=== PATIENT | female | born 1980 | race Caucasian/White ===

== ENCOUNTER → 2017-04-23 | Outpatient (REF) | payer OTHER | LOC: M SFHCLERA 09:47 | PROVIDERS: ATTEND Nurse Practitioner Family | DX: R10.30 Lower abdominal pain, unspecified (principal); N89.8 Other specified noninflammatory disorders of vagina ==

== ENCOUNTER → 2018-08-22 | Outpatient (REF) | payer OTHER | LOC: M SFHCLERA 09:44 | DX: J02.9 Acute pharyngitis, unspecified (principal) ==

== ENCOUNTER → 2021-02-24 | Outpatient (CLI) | payer OTHER ==
[~2021-02-24] MED LIST: E-Z-GAS II EFFERVESCENT PACKET (SODIUM BICARB./CITRIC ACID/SIMETHICONE) As Ordered ONE; E-Z-HD 98% w/w 340GM SUSP BTL As Ordered ONE; E-Z-PAQUE 96% w/w SUSP 176GM BTL As Ordered ONE
--- NOTE | 2021-02-24 16:52 | REP ---
INDICATION: GASTRITIS, EPIGASTRIC PAIN, REFLUX. COMPARISON: None. TECHNIQUE: The procedure was performed under the direct supervision of Dr. Ferreira. The images were reviewed with Dr. Ferreira. Liquid barium and gas producing crystals were given in the erect position as well as liquid barium in the prone oblique position in order to perform a double contrast upper GI examination. 1.3 of fluoro time was utilized for this procedure. FINDINGS: The instrument man film shows no organomegaly or pathological masses. The intestinal gas pattern is non-specific. The oral and pharyngeal stages of deglutition are unremarkable. Esophageal transport is prompt and efficient and there is no esophagitis, stricture, mucosal ring or hiatal hernia. The stomach reveles are normally outlined. The rugal folds are smooth and regular. There is no gastritis neoplasm or ulcer disease. Within the duodenal bulb there are prominent folds which may represent duodenitis. There is no brian ulcer identified. The visualized portion of the proximal small bowel appears normal in course and caliber. IMPRESSION: Within the duodenal bulb there are prominent folds which may represent duodenitis. There is no brian ulcer identified. <Electronically signed by Charanjit Ortega > 02/24/21 [id number] <Electronically signed by Rei Ferreira > 02/24/21 [id number]
== END ==
LOC: M RAD 10:35
PROVIDERS: ATTEND Physician Assistant Medical
DX: R10.13 Epigastric pain (principal); K21.9 Gastro-esophageal reflux disease without esophagitis; K29.70 Gastritis, unspecified, without bleeding

== ENCOUNTER → 2021-08-28 | Outpatient (CLI) | payer OTHER ==
[~2021-08-28] MED LIST changes: -E-Z-GAS II EFFERVESCENT PACKET (SODIUM BICARB./CITRIC ACID/SIMETHICONE) As Ordered ONE; -E-Z-HD 98% w/w 340GM SUSP BTL As Ordered ONE; -E-Z-PAQUE 96% w/w SUSP 176GM BTL As Ordered ONE; +ESOM20CA25 PO
== END ==
LOC: M LABSMTC 11:04
PROVIDERS: ATTEND Anesthesiology
DX: Z01.812 Encounter for preprocedural laboratory examination (principal); Z20.822 Contact with and (suspected) exposure to COVID-19

== ENCOUNTER 2021-09-01 07:00 | Day surgery (SDC) | payer OTHER ==
[~2021-09-01] VITALS: Ht 175.3 cm; Wt 83.9 kg
[~2021-09-01 07:00] MED LIST changes: +LIDOCAINE 2% 100MG/5ML SDV (FOR ANES.) As Ordered ONE; +NS 1,000 ML IV ONE; +propofoL 200 MG/20 ML VIAL As Ordered ONE
--- OUTSIDE RECORDS SUMMARY | 2021-09-01 07:04 | CCD ---
Author Author [facility] Organization [facility] Address Unknown Phone Unavailable Care Team Providers Care Overhead Garage Door Hanger Name Role Phone LePine, M Yuli FUNERAL SALES MANAGER Unavailable Unavailable LePine, M Yuli FUNERAL SALES MANAGER Unavailable Unavailable LePine, M Yuli FUNERAL SALES MANAGER Unavailable Unavailable LePine, M Yuli FUNERAL SALES MANAGER Unavailable Unavailable LePine, M Yuli FUNERAL SALES MANAGER Unavailable Unavailable LePine, M Yuli FUNERAL SALES MANAGER Unavailable Unavailable LePine, M Yuli FUNERAL SALES MANAGER Unavailable Unavailable LePine, M Yuli FUNERAL SALES MANAGER Unavailable Unavailable LePine, M Yuli FUNERAL SALES MANAGER Unavailable Unavailable LePine, M Yuli FUNERAL SALES MANAGER Unavailable Unavailable LePine, M Yuli FUNERAL SALES MANAGER Unavailable Unavailable LePine, M Yuli FUNERAL SALES MANAGER Unavailable Unavailable LePine, M Yuli FUNERAL SALES MANAGER Unavailable Unavailable LePine, M Yuli FUNERAL SALES MANAGER Unavailable Unavailable LePine, M Yuli FUNERAL SALES MANAGER Unavailable Unavailable LePine, M Yuli FUNERAL SALES MANAGER Unavailable Unavailable LePine, M Yuli FUNERAL SALES MANAGER Unavailable Unavailable LePine, M Yuli FUNERAL SALES MANAGER Unavailable Unavailable LePine, M Yuli FUNERAL SALES MANAGER Unavailable Unavailable LePine, M Yuli FUNERAL SALES MANAGER Unavailable Unavailable LePine, M Yuli FUNERAL SALES MANAGER Unavailable Unavailable LePine, M Yuli FUNERAL SALES MANAGER Unavailable Unavailable LePine, M Yuli FUNERAL SALES MANAGER Unavailable Unavailable LePine, M Yuli FUNERAL SALES MANAGER Unavailable Unavailable LePine, M Yuli FUNERAL SALES MANAGER Unavailable Unavailable LePine, M Yuli FUNERAL SALES MANAGER Unavailable Unavailable LePine, M Yuli FUNERAL SALES MANAGER Unavailable Unavailable LePine, M Yuli FUNERAL SALES MANAGER Unavailable Unavailable LePine, M Yuli FUNERAL SALES MANAGER Unavailable Unavailable LePine, M Yuli FUNERAL SALES MANAGER Unavailable Unavailable LePine, M Yuli FUNERAL SALES MANAGER Unavailable Unavailable LePine, M Yuli FUNERAL SALES MANAGER Unavailable Unavailable LePine, M Yuli FUNERAL SALES MANAGER Unavailable Unavailable LePine, M Yuli FUNERAL SALES MANAGER Unavailable Unavailable LePine, M Yuli FUNERAL SALES MANAGER Unavailable Unavailable LePine, M Yuli FUNERAL SALES MANAGER Unavailable Unavailable LePine, M Yuli FUNERAL SALES MANAGER Unavailable Unavailable LePine, M Yuli FUNERAL SALES MANAGER Unavailable Unavailable LePine, M Yuli FUNERAL SALES MANAGER Unavailable Unavailable LePine, M Yuli FUNERAL SALES MANAGER Unavailable Unavailable LePine, M Yuli FUNERAL SALES MANAGER Unavailable Unavailable LePine, M Yuli FUNERAL SALES MANAGER Unavailable Unavailable LePine, M Yuli FUNERAL SALES MANAGER Unavailable Unavailable LePine, M Yuil FUNERAL SALES MANAGER Unavailable Unavailable LePine, M Yuli FUNERAL SALES MANAGER Unavailable Unavailable LePine, M Yuli FUNERAL SALES MANAGER Unavailable Unavailable LePine, M Yuli FUNERAL SALES MANAGER Unavailable Unavailable LePine, M Yuli FUNERAL SALES MANAGER Unavailable Unavailable LePine, M Yuli FUNERAL SALES MANAGER Unavailable Unavailable LePine, M Yuli FUNERAL SALES MANAGER Unavailable Unavailable LePine, M Yuli FUNERAL SALES MANAGER Unavailable Unavailable LePine, M Yuli FUNERAL SALES MANAGER Unavailable Unavailable LePine, M Yuli FUNERAL SALES MANAGER Unavailable Unavailable LePine, M Yuli FUNERAL SALES MANAGER Unavailable Unavailable LePine, M Yuli FUNERAL SALES MANAGER Unavailable Unavailable LePine, M Yuli FUNERAL SALES MANAGER Unavailable Unavailable Eugenia Hutton MD Unavailable Unavailable Eugenia Hutton MD Unavailable Unavailable Eugenia Hutton MD Unavailable Unavailable Eugenia Hutton MD Unavailable Unavailable Eugenia Hutton MD Unavailable Unavailable Eugenia Hutton MD Unavailable Unavailable Eugenia Hutton MD Unavailable Unavailable Eugenia Hutton MD Unavailable Unavailable Eugenia Hutton MD Unavailable Unavailable Eugenia Hutton MD Unavailable Unavailable Eugenia Hutton MD Unavailable Unavailable Eugenia Hutton MD Unavailable Unavailable Eugenia Hutton MD Unavailable Unavailable Eugenia Hutton MD Unavailable Unavailable Eugenia Hutton MD Unavailable Unavailable Eugenia Hutton MD Unavailable Unavailable Eugenia Hutton MD Unavailable Unavailable Eugenia Hutton MD Unavailable Unavailable Eugenia Hutton MD Unavailable Unavailable Eugenia Hutton MD Unavailable Unavailable Eugenia Hutton MD Unavailable Unavailable Eugenia Hutton MD Unavailable Unavailable Eugenia Hutton MD Unavailable Unavailable Eugenia Hutton MD Unavailable Unavailable Eugenia Hutton MD Unavailable Unavailable Eugenia Hutton MD Unavailable Unavailable Eugenia Hutton MD Unavailable Unavailable Eugenia Hutton MD Unavailable Unavailable Eugenia Hutton MD Unavailable Unavailable Eugenia Hutton MD Unavailable Unavailable Brennen, Eugenia Bates MD Unavailable Unavailable Brennen, Eugenia Bates MD Unavailable Unavailable Brennen, Eugenia Bates MD Unavailable Unavailable Brennen, Eugenia Bates MD Unavailable Unavailable Brennen, Eugenia Bates MD Unavailable Unavailable Brennen, Eugenia Bates MD Unavailable Unavailable Brennen, Eugenia Bates MD Unavailable Unavailable Brennen, Eugenia Bates MD Unavailable Unavailable Brennen, Eugenia Bates MD Unavailable Unavailable Brennen, Eugenia Bates MD Unavailable Unavailable Brennen, Eugenia Bates MD Unavailable Unavailable Brennen, Eugenia Bates MD Unavailable Unavailable Brennen, Eugenia Bates MD Unavailable Unavailable Brennen, Eugenia Bates MD Unavailable Unavailable Brennen, Eugenia Bates MD Unavailable Unavailable Brennen, Eugenia Bates MD Unavailable Unavailable Brennen, Eugenia Bates MD Unavailable Unavailable Brennen, Eugenia Bates MD Unavailable Unavailable Brennen, A Jana FRY Unavailable Unavailable Brennen, Eugenia Bates MD Unavailable Unavailable Brennen, A Jana FRY Unavailable Unavailable Brennen, Eugenia Bates MD Unavailable Unavailable Brennen, Eugenia Bates MD Unavailable Unavailable Brennen, Eugenia Bates MD Unavailable Unavailable Brennen, Eugenia Bates MD Unavailable Unavailable Brennen, A Jana FRY Unavailable Unavailable Brennen, Eugenia Bates MD Unavailable Unavailable Brennen, A Jana FRY Unavailable Unavailable Brennen, A Jana FRY Unavailable Unavailable Brennen, Eugenia Bates MD Unavailable Unavailable Brennen, Eugenia Bates MD Unavailable Unavailable Brennen, Eugenia Bates MD Unavailable Unavailable Brennen, Eugenia Bates MD Unavailable Unavailable Brennen, Eugenia Bates MD Unavailable Unavailable Brennen, Eugenia Bates MD Unavailable Unavailable Brennen, Eugenia Bates MD Unavailable Unavailable Brennen, Eugenia Bates MD Unavailable Unavailable Brennen, Eugenia Bates MD Unavailable Unavailable Brennen, Eugenia Bates MD Unavailable Unavailable Brennen, Eugenia Bates MD Unavailable Unavailable Brennen, Eugenia Bates MD Unavailable Unavailable Brennen, Eugenia Bates MD Unavailable Unavailable Brennen, Eugenia Bates MD Unavailable Unavailable Brennen, Eugenia Bates MD Unavailable Unavailable Brennen, Eugenia Bates MD Unavailable Unavailable Brennen, Eugenia Bates MD Unavailable Unavailable Brennen, Eugenia Bates MD Unavailable Unavailable Brennen, Eugenia Bates MD Unavailable Unavailable Brennen, Eugenia Bates MD Unavailable Unavailable Brennen, Eugenia Bates MD Unavailable Unavailable Brennen, Eugenia Bates MD Unavailable Unavailable Brennen, Eugenia Bates MD Unavailable Unavailable Valentine RODNEY MD Unavailable Unavailable Valentine RODNEY MD Unavailable Unavailable Valentine RODNEY MD Unavailable Unavailable Valentine RODNEY MD Unavailable Unavailable Valentine RODNEY MD Unavailable Unavailable Valentine RODNEY MD Unavailable Unavailable Valentine RODNEY MD Unavailable Unavailable Valentine RODNEY MD Unavailable Unavailable TLRALValentine Bello MD Unavailable Unavailable CHANDRALAValentine MD Unavailable Unavailable CHANDRALAValentine MD Unavailable Unavailable CHANDRALAValentine MD Unavailable Unavailable CHANDRALValentine Bello MD Unavailable Unavailable CHANDRALA K MANUEL MD Unavailable Unavailable CHANDRALA K MANUEL MD Unavailable Unavailable CHANDRALA K MANUEL MD Unavailable Unavailable CHANDRALAValentine MD Unavailable Unavailable CHANDRALAValentine MD Unavailable Unavailable CHANDRALAValentine MD Unavailable Unavailable CHANDRALA K MANUEL MD Unavailable Unavailable CHANDRALAValentine MD Unavailable Unavailable CHANDRALA K MANUEL MD Unavailable Unavailable CHANDRALAValentine MD Unavailable Unavailable CHANDRALAValentineYA MD Unavailable Unavailable CHANDRALA K MANUEL MD Unavailable Unavailable CHANDRALA K MANUEL MD Unavailable Unavailable CHANDRALA K MANUEL MD Unavailable Unavailable CHANDRALAValentineYA MD Unavailable Unavailable TLRALValentine Bello MD Unavailable Unavailable CHANDRALAValentine MD Unavailable Unavailable CHANDRALA K MANUEL MD Unavailable Unavailable CHANDRALA K MANUEL MD Unavailable Unavailable CHANDRALA K MANUEL MD Unavailable Unavailable Re-disclosure Warning The records that you are about to access may contain information from federally-assisted alcohol or drug abuse programs. If such information is present, then the following federally mandated warning applies: This information has been disclosed to you from records protected by federal confidentiality rules (42 CFR part 2). The federal rules prohibit you from making any further disclosure of this information unless further disclosure is expressly permitted by the written consent of the person to whom it pertains or as otherwise permitted by 42 CFR part 2. A general authorization for the release of medical or other information is NOT sufficient for this purpose. The Federal rules restrict any use of the information to criminally investigate or prosecute any alcohol or drug abuse patient.The records that you are about to access may contain highly sensitive health information, the redisclosure of which is protected by Article 27-F of the [facility] Public Health law. If you continue you may have access to information: Regarding HIV / AIDS; Provided by facilities licensed or operated by the [facility] Office of Mental Health; or Provided by the [facility] Office for People With Developmental Disabilities. If such information is present, then the following [facility] mandated warning applies: This information has been disclosed to you from confidential records which are protected by state law. State law prohibits you from making any further disclosure of this information without the specific written consent of the person to whom it pertains, or as otherwise permitted by law. Any unauthorized further disclosure in violation of state law may result in a fine or alf sentence or both. A general authorization for the release of medical or other information is NOT sufficient authorization for further disc losure. Family History Family Member Name Family Member Gender Family Member Status Date o f Status Description Data Source(s) Unknown Female Diagnosis 12/04/2017 12:00:00 AM EST Next[facility] ([facility]) Encounters Encounter Providers Location Date Indications Data Source(s ) Outpatient Attender: MANUEL Rubin/Inga/Paddy lópez/Darwin 06/13/2021 10:00:00 AM EDT [facility] ([facility] Outpatient Attender: Yuli Ruby 03/29 08:00:00 AM EDT [facility] ([facility] ) Outpatient [address] [facility] [id number] 03/15/2021 12:00:00 AM EDT eCW1 ([facility]) Outpatient Attender: Yuli Ruby 02/22 08:00:00 AM EDT MEDENT ([facility] ) Attender: Jana Ornelas 1 02:51:00 PM EDT - 09/09/2020 02:51:00 PM EDT NextGen ([facility]) Immunizations Vaccine Date Status Description Data Source(s) COVID-19 VACCINE Pfizer 02/20/2021 12:00:00 AM EDT completed [facility] Vaccine Series Complete: YESThis Data wa s Submitted to [facility] Via [employer]. COVID-19 VACCINE Pfizer 01/30/2021 12:00:00 AM EDT completed [facility] Vaccine Series Complete: NOThis Data was Submitted to [facility] Via [employer]. Medications Medication Brand Name Start Date Product Form Dose Route Admi nistrative Instructions Pharmacy Instructions Status Indications Reaction Description Data Source(s) Clenpiq Clenpiq 06/13/2021 12:00:00 AM EDT active [facility] ([facility] ) Bisacodyl 5 MG Delayed Release Oral Tablet [Dulcolax] Dulcol ax 06/13/2021 12:00:00 AM EDT active M EDENT ([facility]) POLYETHYLENE GLYCOL 3350 105 MG/ML / Pot assium Chloride 0.63291 MEQ/ML / Sodium Bicarbonate 0.017 MEQ/ML / Sodium Chloride 0.0479 MEQ/ML Oral Solution [GaviLyte-N] Gavilyte-N With Flavor Pack 06/13/2021 12:00:00 AM EDT active MEDENT ([facility]) Esomeprazole 20 MG Delayed Release Oral Capsule Esomeprazole Magnesium 05/30/2021 12:00:00 AM EDT ORAL completed [facility] ([facility]) Esomeprazole 20 MG Delayed Release Oral Capsule Esomeprazole Magnesium 05/30/2021 12:00:00 AM EDT ORAL completed [facility] ([facility]) Esomeprazole 20 MG Delayed Release Oral Capsule Esomeprazole Magnesium 05/30/2021 12:00:00 AM EDT ORAL active [facility]) Esomeprazole 40 MG Delayed Release Oral Capsule Esomeprazole Magnesium 04/25/2021 12:00:00 AM EDT ORAL completed [facility] ([facility]) Esomeprazole 20 MG Delayed Release Oral Capsule Esomeprazole Magnesium 03/29/2021 12:00:00 AM EDT ORAL completed [facility] ([facility]) Cholecalciferol 1000 UNT Oral Capsule Vitamin D3 03/29/2021 12:00:00 AM EDT ORAL active [facility] ([facility]) Fluconazole 150 MG Oral Tablet Fluconazole 150 MG 03/15/2021 12:00: 00 AM EDT 1.0 {tablet} active Fluconazole 150 MG eCW1 ([facility]) Esomeprazole 40 MG Delayed Release Oral Capsule Esomeprazole Magnesium 02/22/2021 12:00:00 AM EDT ORAL completed MEDENT ([facility]) Bifidobacterium lactis [id number] UNT / Bifidobacterium longum [id number] UNT / Lactobacillus acidophilus [id number] UNT Oral Capsule [Florajen3] Florajen3 02/22/2021 12:00:00 AM EDT ORAL completed [facility] ([facility]) Esomeprazole 20 MG Delayed Release Oral Capsule Esomeprazole Magnesium 02/22/2021 12:00:00 AM EDT ORAL completed [facility] ([facility]) Ondansetron 4 MG Disintegrating Oral Tablet Ondansetron 02/22/2021 12:00:00 AM EDT active MED[facility] ([facility]) Covid-19 vaccine, Unspecified 02/20/2021 12:00:00 AM EDT completed [facility]) Medication administered onsite Covid-19 vaccine, Unspecified 01/23/2021 12:00:00 AM EDT completed [facility]) Medication administered onsite Insurance Providers Payer name Policy type / Coverage type Policy ID Covered libertarian ID Covered libertarian's relationship to morgan Policy Morgan Plan Information [facility] 1 [id number] 1 [id number] [facility] [id number] self [id number] ANSI-Commercial [id number] [place] [facility] 306/[id number] SP [id number] [facility] [id number] SP [id number] [facility]S [id number] 2 [id number] [facility] [id number] SP [id number] [employer] MEDICAL CLAIMS [id number] ANSI-Commercial [id number] Problems, Conditions, and Diagnoses No Information Surgeries/Procedures Procedure Description Date Indications Data Source(s) OFFICE OUTPATIENT NEW 45 MINUTES 06/13/2021 12:00:00 A M EDT [facility] ([facility], ) OFFICE OUTPATIENT VISIT 10 MINUTES 03/29/2021 12:00:00 AM EDT [facility] ([facility]) Results ID Date Data Source [id number] 08/28/2021 10:50:00 AM EDT [facility] ([facility]) Name Value Range Interpretation Code Description Data Katie rce(s) Supporting Document(s) Coronavirus 2019 Nasopharygeal Laboratory test result [facility] ASSAY INFORMATION: Real Time RT-PCR NOTE: The COVID-19 assay has been cleared by the U.S. Food and Drug Administration under the Emergency Use Authorization (EUA). [employer] and [employer] are designated as high complexity laboratories by the Clinical Laboratory Improvement Amendments of 1988(CLIA) and are qualified to perform this test. Not Detected ID Date Data Source [id number] 02/22/2021 09:08:00 AM EDT [facility] ([facility]) Name Value Range Interpretation Code Description Data Katie rce(s) Supporting Document(s) Calcidiol [Mass/volume] in Serum or Plasma 46.5 ng/mL 24.0-80.0 [facility] This test was performed using [employer] I P Vitamin D immunoassay kit. Values obtained with different assay methods should not be used interchangeably. ID Date Data Source [id number] 02/22/2021 09:08:00 AM EDT [facility] Name Value Range Interpretation Code Description Data Katie rce(s) Supporting Document(s) Thyrotropin [Units/volume] in Serum or Plasma by Detec tion limit <= 0.05 mIU/L 2.06 uIU/mL 0.36-3.74 [facility] ([facility] ) ID Date Data Source [id number] 02/22/2021 09:08:00 AM EDT [facility] Name Value Range Interpretation Code Description Data Katie rce(s) Supporting Document(s) Cholesterol [Mass/volume] in Serum or Plasma 138 mg/dL 131-200 [facility] ([facility]) Cholesterol in LDL [Mass/volume] in Serum or Plasma by calcu lation 58 CALC 50-159 [facility] ([facility]) Triglyceride [Mass/volume] in Serum or Plasma 76 mg/dL 30-150 [facility] ([facility]) Cholesterol in HDL [Mass/volume] in Serum or Plasma 65 mg/dL 35-60 [facility] ([facility]) ID Date Data Source [id number] 02/22/2021 09:08:00 AM EDT [facility] ([facility]) Name Value Range Interpretation Code Description Data Katie rce(s) Supporting Document(s) Urea nitrogen [Mass/volume] in Serum or Plasma 7 mg/dL 7-18 [facility] ([facility]) Glucose [Mass/volume] in Serum or Plasma 95 mg/dL 74-99 [facility] ([facility]) 100-125 mg/dL PRE-DIABETES/FASTING >126 mg/dL DIABETES/FASTING Creatinine 0.9 mg/dL 0.6-1.3 [facility] Sodium [Moles/volume] in Serum or Plasma 139 meq/L 136-145 [facility] ([facility]) Potassium [Moles/volume] in Serum or Plasma 4.6 meq/L 3.5-5.1 [facility] ([facility]) Carbon dioxide, total [Moles/volume] in Serum or Plasma 30 meq/L 21 -32 [facility] ([facility]) Calcium [Mass/volume] in Serum or Plasma 9.1 mg/dL 8.5-10.1 [facility] ([facility]) Chloride [Moles/volume] in Serum or Plasma 103 meq/L 98-107 [facility] ([facility]) Glomerular filtration rate/1.73 sq M pre dicted among non-blacks [Volume Rate/Area] in Serum or Plasma by Creatinine-based formula (MDRD) Laboratory test result [facility] ([facility] Glomerular filtration rate/1.73 sq M pre dicted among blacks [Volume Rate/Area] in Serum or Plasma by Creatinine-based formula (MDRD) Laboratory test result [facility] ([facility]) <content>CHRONIC KIDNEY DISEASE STAGING PER NKF</content>
<content></content>
<content>STAGE I & II GFR >= 60 NORMAL TO MILDLY DECREASED</content>
<content>STAGE III GFR 30-59 MODERATELY DECREASED</content>
<content>STAGE IV GFR 15-29 SEVERELY DECREASED</content>
<content>STAGE V GFR <15 VERY LITTLE GFR LEFT</content>
<content>ESRD GFR <15 ON SPIKE MACHINE FEEDER</content>
<content></content> ID Date Data Source [id number] 02/22/2021 09:08:00 AM EDT [facility] ([facility]) Name Value Range Interpretation Code Description Data Katie rce(s) Supporting Document(s) Leukocytes [#/volume] in Blood by Automated count 4.0 x10*3/UL 4.1-10 .9 [facility] ([facility]) Erythrocytes [#/volume] in Blood by Automated count 4.16 x10*6/UL 4.2 0-6.30 [facility] ([facility]) Hematocrit [Volume Fraction] of Blood by Automated count 37.0 % 3 7.0-51.0 [facility] ([facility]) Hemoglobin [Mass/volume] in Blood 12.6 g/dL 12.0-18.0 [facility] ([facility]) MCH 30.2 pg 26.0-32.0 [facility] MCV 88.9 fL 80.0-97.0 [facility] Platelets [#/volume] in Blood by Automated count 316 x10*3/UL 140-440 [facility] ([facility]) MCHC 34.0 g/dL 31.0-38.0 [facility] Erythrocyte distribution width [Ratio] by Automated count 12.8 % 11.6-13.7 [facility] ([facility]) MPV 7.3 FL 7.8-11.0 [facility] Lymph % 33.3 % 10.0-58.5 [facility] Lymph # 1.3 x10*3/UL 0.6-4.1 [facility] ([facility]) Mid % 8.0 % 1.7-9.3 [facility] Neut % 58.7 % 37.0-92.0 [facility] Mid # 0.4 x10*3/UL 0.1-0.6 [facility] ([facility]) Neut # 2.3 x10*3/UL 2.0-7.8 [facility] ([facility]) ID Date Data Source [id number] 09/15/2020 12:00:00 AM EST [facility] Name Value Range Interpretation Code Description Data Katie rce(s) Supporting Document(s) SARS-CoV2 Rapid Antigen [facility] This lab was ordered by [facility] and reported by [facility]. Procedure Social History Code Duration Value Status Description Data Source(s ) Smoking 03/15/2021 12:00:00 AM EDT Never Smoker completed Never S carina eCW1 ([facility]) Smoking 09/09/2020 12:00:00 AM EDT Never smoker completed Never s carina [facility] ([facility]) Vital Signs ID Date Data Source UNK Name Value Range Interpretation Code Description Data Source(s) Systolic blood pressure 116 mm[Hg] 116 mm[Hg] [facility] Diastolic blood pressure 84 mm[Hg] 84 mm[Hg] [facility] ([facility]) Body height 70 [in_i] 70 [in_i] [facility] ([facility]) 5'10" Body weight 185.00 [lb_av] 185.00 [facility]_av[facility] Body mass index (BMI) [Ratio] 26.5 kg/m2 26.5 k g/m2 [facility] ([facility]) [place] body weight 150 [lb_av] 150 [lb_av] MED[facility] T ([facility]) Body weight 83.916 kg 83.916 kg [facility] ([facility]) Body surface area Derived from formula 2.02 m2 2.02 m2 [facility] ([facility]) Systolic blood pressure 102 mm[Hg] 102 mm[Hg] M EDENT ([facility]) Diastolic blood pressure 64 mm[Hg] 64 mm[Hg] [facility] ([facility]) Heart rate 72 /min 72 /min [facility] Body height 68.25 [in_i] 68.25 [in_i] [facility] ([facility] 5'8.25" Body weight 191.00 [lb_av] 191.00 [lb_av] MEDEN T ([facility]) Oxygen saturation in Arterial blood by Pulse oximetry 98 % 98 % [facility] ([facility]) Body mass index (BMI) [Ratio] 28.8 kg/m2 28.8 k g/m2 [facility] ([facility]) Body weight 190 [lb_av] 190 [lb_av] W1 ([facility]) Body height 70 [in_i] 70 [in_i] W1 ([facility]) Body mass index (BMI) [Ratio] 27.26 kg/m2 27.26 kg/m2 [facility] ([facility]) Systolic blood pressure 110 mm[Hg] 110 mm[Hg] e CW1 (Counts Include [facility]) Diastolic blood pressure 76 mm[Hg] 76 mm[Hg] W1 (Counts Include [facility]) Body height 68.25 [in_i] 68.25 [in_i] [facility] ([facility]) 5'8.25" Heart rate 80 /min 80 /min [facility] ([facility]) Oxygen saturation in Arterial blood by Pulse oximetry 98 % 98 % [facility] ([facility]) Body mass index (BMI) [Ratio] 28.1 kg/m2 28.1 k g/m2 [facility] ([facility]) Body weight 186.00 [lb_av] 186.00 [lb_av] [facility]EN T ([facility]) Systolic blood pressure 102 mm[Hg] 102 mm[Hg] M EDENT ([facility]) Diastolic blood pressure 70 mm[Hg] 70 mm[Hg] [facility] ([facility]) Patient Treatment Plan of Care Planned Activity Planned Date Details Description Data Source (s) Fluconazole 150 MG Oral Tablet 03/15/2021 12:00:00 AM EDT eCW1 (Counts Include [facility])
--- OUTSIDE RECORDS SUMMARY | 2021-09-01 07:04 | CCD | Continuity of Care Document ---
Author Author Santa RODNEY M.D. Organization Unknown Address [address], [address] [place] [address] Phone [phone] Care Team Providers Care News Camera Person Name Role Phone Darya Doherty N.P. AUTM [phone] Yuli Durant AUTM [phone] Problems Description No Information Available Social History Type Date Description Comments Sex Unknown ETOH Use 3 A Week Tobacco Use Start: Unknown Non Smoker Allergies, Adverse Reactions, Alerts Active Allergies Reaction Severity Comments Date Prozac HIVES,HEADACHE 12/03/2014 Soldyn RASH,HEADACHE 12/03/2014 Medications Active Medications SIG Qnty Indications Ordering Provide r Date Clenpiq 10-3.5-12mg-GM -GM/160ML S olution follow pre-procedure instructions. start day before procedure. (if not covered by insurance please fill gavilyte script). 320ml R14.0 Faheem Rodney M.D. 06/13/2021 Gavilyte-N With Flavor Pack 420gm Solution Rec drink the liquid as per the pre-procedur e instructions. ( fill this script only if clenpiq is not covered by insurance). 4000ml R14.0 Faheem Rodney M.D. 06/13/[address] take 4 tablets together as per bowel preparation instructions. 4tabs R14.0 Faheem Rodney M.D. 06/13/[address] 20[address] Capsules [address] Unknown Immunizations Description No Information Available Vital Signs Date Vital Result Comment 06/13/2021 10:58am BP Systolic 116 mmHg BP Diastolic 84 mmHg Height 70 inches 5'10" Weight 185.00 lb BMI (Body Mass Index) 26.5 kg/m2 [place] Body Weight 150 lb Weight 83.916 kg BSA (Body Surface Area) 2.02 m2 Results Description No Information Available Procedures Description No Information Available Medical Devices Description No Information Available Encounters Description No Information Available Assessments Date Code Description Provider 06/13/2021 R14.0 Abdominal distension (gaseous) Caesar Rodney M.D. 06/13/2021 R11.0 Nausea Faheem Henson ala, M.D. 06/13/2021 K58.2 Mixed irritable bowel syndrome Caesar Rodney M.D. Plan of Treatment 06/13/2021 - Faheem Rodney M.D.* R14.0 Abdominal distension (gaseous) * R11.0 Nausea * K58.2 Mixed irritable bowel syndrome * * New Medication:* Clenpiq 10-3.5-12 mg-GM -GM/160ML * Gavilyte-N With Flavor Pack 420 gm * Dulcolax 5 mg * Comments:* Impression:-- Chronic IBS diagnosis with abdominal bloating and left sided abdomianl discomfort with recent flare up symptoms, ( while on diflucan and excess alcohol use during the COVID pandemic), and prior work up at PCP clinic including UGI ( as per patient- showed gastritis) and symptoms improving after stopping diflucan and on Esomepraole taper. -- Chronic history of IBS and with family history of colon cancer in grand parent -- Needs screening Colonoscopy. * Recommendations:* -- Patient is educated about the prior test results and all possible differential diagnoses. All questions answered. -- Patient is educated about the dietary changes for possible irritable bowel syndrome, printed material was provided for low FODMAP diet. -- Continue the current taper of Esomeprazole. -- Discussed about screening colonoscopy, its indications, risks, benefits and alternatives (including no procedure and symptomatic therapy), with patient and as per discussion patient want to proceed with early screening Colonoscopy. -- Further work up for nausea and abdominal bloating if persistent even after above measures. ( discussed H. pylori testing and Ultrasound if needed based on the clinical course. At this time no red flag symptoms).. -- Patient to return to GI clinic in 6 weeks if persistent symptoms after the Colonoscopy. . -- Follow with PMD for routine medical care and other age appropriate health maintenance. Functional Status Description No Information Available Mental Status Description No Information Available Referrals Refer to Reason for Referral Status Appt Date Faheem Rodney M.D. IBS Created [facility] [address], [address] [place], [place] [address] [phone]
--- OUTSIDE RECORDS SUMMARY | 2021-09-01 07:04 | CCD | Continuity of Care Document ---
Author Author Santa RODNEY M.D. Organization Unknown Address [address], [address] [place] [address] Phone [phone] Care Team Providers Care Inorganic Chemistry Teacher Name Role Phone Darya Doherty N.P. AUTM [phone] Yuli Durant AUTM [phone] Problems Description No Information Available Social History [...] lb BMI (Body Mass Index) 26.5 kg/m2 [place] Body Weight 150 lb Weight 83.916 kg BSA (Body Surface Area) 2.02 m2 Results Description No Information Available Procedures Date Code Description Status 06/13/2021 12770 Office/Outpatient New Moderate M DM 45-59 Minutes Completed Medical Devices Description No Information Available Encounters Type Date Location Provider Dx Diagnosis Office Visit 06/13/2021 10:00a [facility] ctice Faheem Rodney M.D. R14.0 Abdominal distension (gaseou s) R11.0 Nausea K58.2 Mixed irritable bowel syndro me Assessments Date Code Description Provider 06/13/2021 R14.0 [...] Appt Date Faheem Rodney M.D. IBS Created [facility] [address], [address] [place] [address] [phone]
--- OUTSIDE RECORDS SUMMARY | 2021-09-01 07:04 | CCD | Continuity of Care Document ---
Author Author Santa Bravo Organization Unknown Address [address] [facility] [address] [place] [address] Phone [phone] Care Team Providers Care Cardiac Care Unit Nurse Name Role Phone Yuli Durant AUTM [phone] Problems Description No Information Available Social History Type Date Description Comments Sex Unknown ETOH Use Occasionally consumes alcohol li quor 4-5 times a week Tobacco Use Start: Unknown Patient has never smoked Recreational Drug Use Current Drug User Delta 8 once a month (edible THC 1/2 strength) Allergies and adverse reactions Active Allergies Criticality Reaction | Severity Comments Date Prozac Unable to assess criticality hives 02/22/2021 Medications Active Medications SIG Qnty Indications Ordering Provide r Date Esomeprazole Magnesium 20mg Capsul es DR 1 by mouth every day 90rocío Wright MD Vitamin D3 25mcg (1000 Ut) Capsule s 2 by mouth every day AWA Bravo 03/29/2021 Ondansetron 4mg Tablets Dispers one odt every 8 hours as needed for nausea 30tabs AWA Bravo 02/22/2021 History Medications Esomeprazole Magnesium 20mg Capsul es DR 1 by mouth every day 90rocío Wright MD - 05/30/2021 Esomeprazole Magnesium 20mg Capsul es DR 1 by mouth every day 90rocío Wright MD - 05/30/2021 Esomeprazole Magnesium 40mg Capsul es DR 1 by mouth every day 30rocío Wright MD - 05/30/2021 Esomeprazole Magnesium 20mg Capsul es DR 1 by mouth every day 90AWA Wisdom 03/29/2021 - 04/25/2021 Medications Administered in Office Medication SIG Qnty Indications Ordering Provider Date Covid-19 vaccine, Unspecified Inj ection Unknown 02/20/2021 Covid-19 vaccine, Unspecified Inj ection Unknown 01/23/2021 Immunizations Description No Information Available Vital Signs Date Vital Result Comment 03/29/2021 7:45am BP Systolic 102 mmHg BP Diastolic 64 mmHg Heart Rate 72 /min Height 68.25 inches 5'8.25" Weight 191.00 lb O2 % BldC Oximetry 98 % BMI (Body Mass Index) 28.8 kg/m2 02/22/2021 8:04am BP Systolic 102 mmHg BP Diastolic 70 mmHg Heart Rate 80 /min Height 68.25 inches 5'8.25" Weight 186.00 lb O2 % BldC Oximetry 98 % BMI (Body Mass Index) 28.1 kg/m2 Results Test Acquired Date Facility Test Result H/L Range Note Coronavirus 2019 Nasopharygeal 08/28/2021 [place] [id number] [phone] Coronavirus 2019 Nasopharygeal ASSAY INFORMATIO <SEE N OTE> 1 1 ASSAY INFORMATION: Real Time RT-PCR NOTE: The COVID-19 assay has been cleared by the U.S. Food and Drug Administration under the Emergency Use Authorization (EUA). [facility] and [facility] are designated as high complexity laboratories by the Clinical Laboratory Improvement Amendments of 1988(CLIA) and are qualified to perform this test. Not Detected Procedures Date Code Description Status 03/29/2021 97607 Office/Outpatient Established [facility] 10-19 Min Completed Medical Devices Description No Information Available Encounters Type Date Location Provider Dx Diagnosis Office Visit 03/29/2021 8:00a [facility] Yuli Kent ne, AWA K58.1 Irritable bowel syndrome with constipati on Assessments Date Code Description Provider 03/29/2021 K58.1 Irritable bowel syndrome with co nstipation AWA Bravo Plan of Treatment Future Appointment(s):* 08/31/2021 9:00 am - AWA Bravo at [facility] 03/29/2021 - AWA Bravo* K58.1 Irritable bowel syndrome with constipation * Comments:* better with the Esomeprazole.Has appt with Dr Govea in June. Will continue current dose of e Esomeprazole until after he evaluates her. * All * New Medication:* Vitamin D3 25 mcg (1000 Ut) - 2 by mouth every day * Esomeprazole Magnesium 20 mg - 1 by mouth every day Functional Status Description No Information Available Mental Status Description No Information Available Referrals Refer to Reason for Referral Status Appt Date Faheem Govea MD CONSULT FOR IRRITABLE BOWEL SYNDROME P atient Notified 06/13/[address] [address] [phone]
[2021-09-01] MEDS ORDERED: propofoL 200 MG/20 ML VIAL As Ordered ONE (08:44)
--- NOTE | 2021-09-01 09:02 | ROOR ---
Patient Name: Santa Palm Procedure Date: 09/01/2021 8:11 AM Date of : 1980 Age: 41 Room: [facility] Gender: Female Note Status: Finalized Procedure: Colonoscopy Indications: Screening for colon cancer: Family history of colorectal cancer in distant relative(s) Providers: Faheem Govea MD Referring MD: Yuli Govea NP Requesting Provider: Medicines: Monitored Anesthesia Care Complications: No immediate complications. Procedure: Pre-Anesthesia Assessment: - Prior to the procedure, a History and Physical was performed, and patient medications and allergies were reviewed. The patient is competent. The risks and benefits of the procedure and the sedation options and risks were discussed with the patient. All questions were answered and informed consent was obtained. Patient identification and proposed procedure were verified by the physician, the nurse and the anesthesiologist in the procedure room. Mental Status Examination: alert and oriented. Airway Examination: normal oropharyngeal airway and neck mobility. Respiratory Examination: clear to auscultation. CV Examination: normal. Prophylactic Antibiotics: The patient does not require prophylactic antibiotics. Prior Anticoagulants: The patient has taken no previous anticoagulant or antiplatelet agents. ASA Grade Assessment: III - A patient with severe systemic disease. After reviewing the risks and benefits, the patient was deemed in satisfactory condition to undergo the procedure. The anesthesia plan was to use monitored anesthesia care (MAC). Immediately prior to administration of medications, the patient was re-assessed for adequacy to receive sedatives. The heart rate, respiratory rate, oxygen saturations, blood pressure, adequacy of pulmonary ventilation, and response to care were monitored throughout the procedure. The physical status of the patient was re-assessed after the procedure. The Colonoscope was introduced through the anus and advanced to the terminal ileum, with identification of the appendiceal orifice and IC valve. The colonoscopy was performed without difficulty. The patient tolerated the procedure well. The quality of the bowel preparation was good. The terminal ileum, ileocecal valve, appendiceal orifice, and rectum were photographed. Scope insertion time was 2 minutes. Scope withdrawal time was 9 minutes. The total duration of the procedure was 12 minutes. Findings: The perianal and digital rectal examinations were normal. The terminal ileum appeared normal. Four sessile polyps were found in the transverse colon, ascending colon and cecum. The polyps were 6 to 15 mm in size. These polyps were removed with a hot snare. Resection and retrieval were complete. Verification of patient identification for the specimen was done by the physician and nurse using the patient's name, date and medical record number. Estimated blood loss was minimal. Non-bleeding external and internal hemorrhoids were found during retroflexion. The hemorrhoids were medium-sized. Impression: - The examined portion of the ileum was normal. - Four 6 to 15 mm polyps in the transverse colon, in the ascending colon and in the cecum, removed with a hot snare. Resected and retrieved. - Non-bleeding external and internal hemorrhoids. Recommendation: - Patient has a contact number available for emergencies. The signs and symptoms of potential delayed complications were discussed with the patient. Return to normal activities tomorrow. Written discharge instructions were provided to the patient. - High fiber diet. - Continue present medications. - Await pathology results. - Repeat colonoscopy in 3 - 5 years for surveillance based on pathology results. - Telephone GI clinic for pathology results in 2 weeks. - Return to GI clinic if persistent symptoms or new symptoms. - Return to primary care physician. Procedure Code(s): --- Professional --- 54465, Colonoscopy, flexible; with removal of tumor(s), polyp(s), or other lesion(s) by snare technique Diagnosis Code(s): --- Professional --- Z12.11, Encounter for screening for malignant neoplasm of colon Z80.0, Family history of malignant neoplasm of digestive organs K64.8, Other hemorrhoids K63.5, Polyp of colon CPT copyright 2019 [employer]. All rights reserved. The codes documented in this report are preliminary and upon outdoor adventure guides review may be revised to meet current compliance requirements. Faheem Govea MD Faheem Govea MD 09/01/2021 9:01:43 AM Electronically signed by Faheem Govea MD Number of Addenda: 0 Note Initiated On: 09/01/2021 8:11 AM Estimated Blood Loss: Estimated blood loss was minimal.
[2021-09-01 09:15] VITALS: BP 113/68
== END 2021-09-01 09:25 | disposition home or self-care (01) ==
LOC: M OPP 07:00
PROVIDERS: ATTEND Internal Medicine Gastroenterology
DX: Z12.11 Encounter for screening for malignant neoplasm of colon (principal); K63.5 Polyp of colon; K64.8 Other hemorrhoids; Z80.0 Family history of malignant neoplasm of digestive organs; Z88.8 Allergy status to other drugs, medicaments and biological substances

== ENCOUNTER → 2022-02-22 | Outpatient (REF) | payer OTHER ==
[~2022-02-22] MED LIST changes: -LIDOCAINE 2% 100MG/5ML SDV (FOR ANES.) As Ordered ONE; -NS 1,000 ML IV ONE; -propofoL 200 MG/20 ML VIAL As Ordered ONE
== END ==
LOC: M LAB REF 11:58
PROVIDERS: ATTEND Nurse Practitioner Adult Health
DX: R23.8 Other skin changes (principal)

== ENCOUNTER → 2022-04-18 | Outpatient (CLI) | payer OTHER ==
[~2022-04-18] MED LIST changes: +FAMO20TA PO
== END ==
LOC: M LABSMTC 10:35
PROVIDERS: ATTEND Anesthesiology
DX: Z01.818 Encounter for other preprocedural examination (principal); Z11.52 Encounter for screening for COVID-19

== ENCOUNTER 2022-04-19 08:59 | Day surgery (SDC) | payer OTHER ==
[~2022-04-19] VITALS: Ht 177.8 cm; Wt 90.4 kg
[~2022-04-19 08:59] MED LIST changes: +NS 1,000 ML IV ONE
[2022-04-19] MEDS ORDERED: propofoL 500 MG/50 ML VIAL As Ordered ONE (09:58)
[2022-04-19] MEDS ORDERED: LIDOCAINE 2% 100MG/5ML SDV (FOR ANES.) As Ordered ONE (09:58)
[2022-04-19] MEDS ORDERED: fentaNYL 100 MCG/2 ML INJECTION As Ordered ONE (09:58)
[2022-04-19 11:26] VITALS: BP 120/73
== END 2022-04-19 11:30 | disposition home or self-care (01) ==
LOC: M OPP 08:59
PROVIDERS: ATTEND Internal Medicine Gastroenterology
DX: K21.00 Gastro-esophageal reflux disease with esophagitis, without bleeding (principal); K29.70 Gastritis, unspecified, without bleeding; K31.7 Polyp of stomach and duodenum; R10.13 Epigastric pain; K44.9 Diaphragmatic hernia without obstruction or gangrene; Z79.899 Other long term (current) drug therapy; Z88.8 Allergy status to other drugs, medicaments and biological substances; Z80.0 Family history of malignant neoplasm of digestive organs; Z80.51 Family history of malignant neoplasm of kidney
CPT/HCPCS: 43239; 88305; J3010

== ENCOUNTER → 2022-04-26 | Outpatient (CLI) | payer OTHER ==
[~2022-04-26] MED LIST changes: -NS 1,000 ML IV ONE
== END ==
LOC: M RAD 08:37
PROVIDERS: ATTEND Internal Medicine Gastroenterology
DX: R93.2 Abnormal findings on diagnostic imaging of liver and biliary tract (principal); R14.0 Abdominal distension (gaseous)

== ENCOUNTER → 2023-06-13 | Day surgery (SDC) | payer BC ==
[~2023-06-13] VITALS: Ht 175.3 cm; Wt 89.2 kg
[~2023-06-13] MED LIST changes: +AVIATAB PO; +LIDOCAINE 2% 100MG/5ML SDV (FOR ANES.) As Ordered ONE; +NS 1,000 ML IV ONE; +PANT20TA6 PO; +fentaNYL 100 MCG/2 ML INJECTION As Ordered ONE; +propofoL 200 MG/20 ML VIAL As Ordered ONE
[2023-06-13 14:17] VITALS: BP 137/74; TEMP 97.9; O2SAT 98
== END | disposition home or self-care (01) ==
LOC: M OPP 10:45
PROVIDERS: ATTEND Internal Medicine Gastroenterology
DX: K31.7 Polyp of stomach and duodenum (principal); Z53.8 Procedure and treatment not carried out for other reasons; Z59.82 Transportation insecurity

== ENCOUNTER → 2023-08-19 | Day surgery (SDC) | payer BC ==
[~2023-08-19] VITALS: Ht 175.3 cm; Wt 88.9 kg
[2023-08-19 14:35] VITALS: BP 118/69; TEMP 97.8; O2SAT 100
== END | disposition home or self-care (01) ==
LOC: M OPP 11:37
PROVIDERS: ATTEND Internal Medicine Gastroenterology
DX: K31.7 Polyp of stomach and duodenum (principal); K44.9 Diaphragmatic hernia without obstruction or gangrene; K29.70 Gastritis, unspecified, without bleeding; Z79.899 Other long term (current) drug therapy; Z88.8 Allergy status to other drugs, medicaments and biological substances
CPT/HCPCS: 43239; 88305; J3010

== ENCOUNTER → 2023-10-29 | Outpatient (REF) | payer OTHER ==
[~2023-10-29] MED LIST changes: -LIDOCAINE 2% 100MG/5ML SDV (FOR ANES.) As Ordered ONE; -NS 1,000 ML IV ONE; -fentaNYL 100 MCG/2 ML INJECTION As Ordered ONE; -propofoL 200 MG/20 ML VIAL As Ordered ONE
[2023-10-29 18:18] LABS: PERCENT SATURATION 15.6 % (13.2-45.0)
== END ==
LOC: M LAB REF 16:33
PROVIDERS: ATTEND Nurse Practitioner Family
DX: D64.9 Anemia, unspecified (principal)

== ENCOUNTER → 2024-01-07 | Outpatient (CLI) | payer OTHER ==
[~2024-01-07] MED LIST changes: +E-Z-PAQUE 96% w/w SUSP 176GM BTL As Ordered ONE
== END ==
LOC: M RAD 07:48
PROVIDERS: ATTEND Internal Medicine Gastroenterology
DX: K31.89 Other diseases of stomach and duodenum (principal)

== ENCOUNTER → 2025-01-12 | Outpatient (REF) | payer OTHER ==
[~2025-01-12] MED LIST changes: -E-Z-PAQUE 96% w/w SUSP 176GM BTL As Ordered ONE
[2025-01-12 15:22] LABS: FERRITIN 34.8 NG/ML (7.3-270.7)
== END ==
LOC: M LAB REF 12:29
PROVIDERS: ATTEND Nurse Practitioner Family
DX: D64.9 Anemia, unspecified (principal)

== ENCOUNTER → 2025-05-31 | Outpatient (CLI) | payer OTHER ==
[~2025-05-31] MED LIST changes: +E-Z-GAS II EFFERVESCENT PACKET (SODIUM BICARB./CITRIC ACID/SIMETHICONE) As Ordered ONE; +E-Z-HD 98% w/w 340 GM SUSP BTL As Ordered ONE; +E-Z-PAQUE 96% w/w SUSP 176 GM BTL As Ordered ONE
== END ==
LOC: M RAD 07:26
PROVIDERS: ATTEND Specialist
DX: K21.9 Gastro-esophageal reflux disease without esophagitis (principal)

== ENCOUNTER → 2025-07-15 | Outpatient (REF) | payer OTHER ==
[~2025-07-15] MED LIST changes: -E-Z-GAS II EFFERVESCENT PACKET (SODIUM BICARB./CITRIC ACID/SIMETHICONE) As Ordered ONE; -E-Z-HD 98% w/w 340 GM SUSP BTL As Ordered ONE; -E-Z-PAQUE 96% w/w SUSP 176 GM BTL As Ordered ONE
[2025-07-15 13:45] LABS: PROGESTERONE 1.14 NG/ML
[2025-07-15 13:46] LABS: ESTRADIOL 74.1 PG/ML; LUTEINIZING HORMONE 8.6 mIU/ML
== END ==
LOC: M LAB REF 12:27
PROVIDERS: ATTEND Nurse Practitioner Family
DX: R53.83 Other fatigue (principal); F39 Unspecified mood [affective] disorder